=== PATIENT | female | born 1995 | race African-American/Black ===

== ENCOUNTER 2018-10-08 08:15 | Observation (INO) | payer OTHER ==
[~2018-10-08] VITALS: Ht 172.7 cm; Wt 107.5 kg
[2018-10-08] MEDS ORDERED: LACTATED RINGER'S 2,000 ML IV ONE (09:00)
[2018-10-08] MEDS ORDERED: PROMETHAZINE HCL 25 MG/ML 1ML IV PRN (09:00)
[2018-10-08] MEDS ORDERED: D5W/LACTATED RINGERS 1,000 ML IV ONE (09:30)
== END 2018-10-08 11:10 | disposition home or self-care (01) | DRG 833 ==
LOC: LDRP 08:15
PROVIDERS: ADMIT Internal Medicine; ATTEND Internal Medicine
DX: O21.2 Late vomiting of pregnancy (principal); O99.283 Endocrine, nutritional and metabolic diseases complicating pregnancy, third trimester; E86.0 Dehydration; Z3A.33 33 weeks gestation of pregnancy
CPT/HCPCS: 59025; 81002; 96361; 96374; G0378; J2550; 96372

== ENCOUNTER → 2018-10-22 | Outpatient (CLI) | payer OTHER ==
[2018-10-22 09:49] LABS: Basophils # (auto) 0 uL; Basophils % (auto) 0.3 % (0.0-2.0); Eosinophils # (auto) 0 uL; Eosinophils % (auto) 0.6 % (0.0-7.0); Hematocrit 42.1 % (36.0-46.0); Hemoglobin 14.1 g/dL (12.2-16.2); Lymphocytes % (auto) 24.8 % (10.0-50.0); Mean Corpuscular Hemoglobin 29.1 pg (28.0-32.0); Mean Corpuscular Hgb Conc. 33.4 g/dL (32.0-36.0); Mean Corpuscular Volume 87.1 fL (80.0-100.0); Monocytes # (auto) 0.7 uL; Monocytes % (auto) 9.3 % (0.0-12.0); Neutrophils # (auto) 5.2 uL; Nucleated Red Blood Cells % 0.1 %; Platelet Count (auto) 188 10^3/uL (140-450); Red Blood Cells 4.84 10^6/uL (4.0-5.20); Red Cell Distribution Width 14.3 % (11.8-14.3); White Blood Cell 8.1 10^3/uL (4.4-10.8)
[2018-10-23 11:06] LABS: RPR Non Reactive (Non Reactive)
== END | disposition home or self-care (01) ==
LOC: LAB 09:02
PROVIDERS: ATTEND Obstetrics & Gynecology
DX: O23.593 Infection of other part of genital tract in pregnancy, third trimester (principal); Z3A.35 35 weeks gestation of pregnancy
CPT/HCPCS: 36415; 84112; 85025; 86592; 87081

== ENCOUNTER 2018-11-07 10:00 | Observation (INO) | payer OTHER | END 2018-11-07 11:48 | disposition home or self-care (01) | DRG 833 | LOC: LDRP 10:00 | PROVIDERS: ADMIT Obstetrics & Gynecology; ATTEND Obstetrics & Gynecology | DX: O36.5930 Maternal care for other known or suspected poor fetal growth, third trimester, not applicable or unspecified (principal); O26.893 Other specified pregnancy related conditions, third trimester; R51 Headache; Z3A.37 37 weeks gestation of pregnancy; Z87.891 Personal history of nicotine dependence | CPT/HCPCS: 59025; 76818; 81002; G0378 ==

== ENCOUNTER 2018-11-11 11:28 | Observation (INO) | payer OTHER ==
[2018-11-11] MEDS ORDERED: PREN-153 PO (12:31)
[2018-11-11] MEDS ORDERED: CALC667C PO (12:32)
[2018-11-11] MEDS ORDERED: CEPH250C PO (12:33)
== END 2018-11-11 13:15 | disposition home or self-care (01) | DRG 833 ==
LOC: LDRP 11:28
PROVIDERS: ADMIT Obstetrics & Gynecology; ATTEND Obstetrics & Gynecology
DX: O60.03 Preterm labor without delivery, third trimester (principal); Z87.891 Personal history of nicotine dependence; Z3A.37 37 weeks gestation of pregnancy
CPT/HCPCS: 59025; 76818; 81002; G0378

== ENCOUNTER 2018-11-12 18:57 | Observation (INO) | payer OTHER ==
[~2018-11-12 18:57] MED LIST: CALC667C PO; CEPH250C PO; PREN-153 PO
== END 2018-11-12 21:24 | disposition home or self-care (01) | DRG 833 ==
LOC: LDRP 18:57
PROVIDERS: ADMIT Specialist; ATTEND Specialist
DX: O26.893 Other specified pregnancy related conditions, third trimester (principal); Z3A.38 38 weeks gestation of pregnancy
CPT/HCPCS: 59025; 76818; 81002; G0378

== ENCOUNTER 2018-11-18 09:42 | Observation (INO) | payer OTHER ==
[2018-11-18 10:59] LABS: Basophils # (auto) 0 uL; Basophils % (auto) 0.3 % (0.0-2.0); Eosinophils # (auto) 0.1 uL; Eosinophils % (auto) 0.6 % (0.0-7.0); Hematocrit 42.5 % (36.0-46.0); Hemoglobin 14.1 g/dL (12.2-16.2); Lymphocytes # (auto) 2.2 uL; Lymphocytes % (auto) 23.9 % (10.0-50.0); Mean Corpuscular Hemoglobin 29.2 pg (28.0-32.0); Mean Corpuscular Hgb Conc. 33.2 g/dL (32.0-36.0); Monocytes # (auto) 0.8 uL; Monocytes % (auto) 8.4 % (0.0-12.0); Neutrophils # (auto) 6.1 uL; Neutrophils % (auto) 66.8 % (37.0-80.0); Nucleated Red Blood Cells % 0.2 %; Platelet Count (auto) 150 10^3/uL (140-450); Red Blood Cells 4.83 10^6/uL (4.0-5.20); Red Cell Distribution Width 15.2 % (11.8-14.3); White Blood Cell 9.1 10^3/uL (4.4-10.8)
[2018-11-18 11:14] LABS: INR < 0.93 (0.9-1.15)
[2018-11-18 11:25] LABS: Albumin 1.5 g/dL (3.4-5.0); Calcium 8.8 mg/dL (8.5-10.1); Potassium 3.6 mmol/L (3.5-5.1); Uric Acid 5.8 mg/dL (2.6-6.0)
[2018-11-18 11:28] LABS: BUN/Creatinine Ratio 9.1; Bilirubin, Total 0.2 mg/dL (0.2-1.0); Total Protein 7.1 g/dL (6.4-8.2)
[2018-11-18 11:30] LABS: Urine Bacteria FEW /hpf (None Seen); Urine Blood 1+ /uL (Negative); Urine Specific Gravity 1.011 (1.001-1.035); Urine WBC 35 /hpf (0 - 5)
== END 2018-11-18 13:20 | disposition home or self-care (01) | DRG 833 ==
LOC: LDRP 09:42
PROVIDERS: ADMIT Obstetrics & Gynecology; ATTEND Obstetrics & Gynecology
DX: O26.893 Other specified pregnancy related conditions, third trimester (principal); Z3A.38 38 weeks gestation of pregnancy; Z87.891 Personal history of nicotine dependence
CPT/HCPCS: 36415; 59025; 76818; 80053; 81001; 81002; 84550; 85025; 85610; 85730; G0378

== ENCOUNTER 2018-11-20 09:00 | Observation (INO) | payer OTHER ==
[2018-11-20 10:21] LABS: Urine Bacteria FEW /hpf (None Seen); Urine Blood TRACE /uL (Negative); Urine Specific Gravity 1.005 (1.001-1.035); Urine WBC 3 /hpf (0 - 5)
[2018-11-20 10:48] LABS: Protein, Urine 6.1 mg/dL (0.0-11.9)
== END 2018-11-20 11:20 | disposition home or self-care (01) | DRG 833 ==
LOC: LDRP 09:00
PROVIDERS: ADMIT Specialist; ATTEND Specialist
DX: O26.893 Other specified pregnancy related conditions, third trimester (principal); R51 Headache; R11.0 Nausea; Z87.891 Personal history of nicotine dependence; Z3A.39 39 weeks gestation of pregnancy
CPT/HCPCS: 59025; 81001; 81002; 84156; G0378

== ENCOUNTER 2018-11-20 16:05 | Observation (INO) | payer OTHER ==
[2018-11-20 17:23] LABS: Urine Bacteria NONE SEEN /hpf (None Seen); Urine Blood 1+ /uL (Negative); Urine Specific Gravity 1.013 (1.001-1.035); Urine WBC 2 /hpf (0 - 5)
== END 2018-11-20 18:10 | disposition home or self-care (01) | DRG 833 ==
LOC: LDRP 16:05
PROVIDERS: ADMIT Specialist; ATTEND Specialist
DX: O26.893 Other specified pregnancy related conditions, third trimester (principal); R10.9 Unspecified abdominal pain; R51 Headache; R11.0 Nausea; Z3A.39 39 weeks gestation of pregnancy; Z87.891 Personal history of nicotine dependence
CPT/HCPCS: 59025; 81001; 81002; G0378

== ENCOUNTER 2018-11-23 13:07 | Observation (INO) | payer OTHER ==
[~2018-11-23 13:07] MED LIST changes: -CEPH250C PO
== END 2018-11-23 15:50 | disposition home or self-care (01) | DRG 833 ==
LOC: LDRP 13:07
PROVIDERS: ADMIT Specialist; ATTEND Specialist
DX: O26.893 Other specified pregnancy related conditions, third trimester (principal); R11.2 Nausea with vomiting, unspecified; Z87.891 Personal history of nicotine dependence; Z3A.39 39 weeks gestation of pregnancy
CPT/HCPCS: 59025; 76818; 81002; G0378

== ENCOUNTER 2018-11-24 21:36 | Inpatient (IN) | payer OTHER ==
[~2018-11-24] VITALS: Ht 172.7 cm; Wt 111.1 kg
[2018-11-24] MEDS ORDERED: LACT. RINGERS/OXYTOCIN 20UNITS 1,000 ML IV SCH (22:52)
[2018-11-24] MEDS ORDERED: DERMOPLAST 60ML BOTTLE TOP PRN (23:00)
[2018-11-24] MEDS ORDERED: NALBUPHINE HCL 10 MG/1ml INJECTION IV PRN (23:00)
[2018-11-24] MEDS ORDERED: WITCH HAZEL-GLYCERIN PAD TOP PRN (23:00)
[2018-11-24] MEDS ORDERED: PHISODERM TOP SOLN 240ML BTL TOP PRN (23:00)
[2018-11-24] MEDS ORDERED: LIDOCAINE 2%HCL (LOCAL ANESTH.) INJ 20ML MDV ID ONE (23:00)
[2018-11-24] MEDS ORDERED: PENICILLIN G POT 5MIL/D5 50ML 50 ML IV ONE (23:30)
[2018-11-24 23:45] LABS: Basophils # (auto) 0 uL; Basophils % (auto) 0.3 % (0.0-2.0); Eosinophils # (auto) 0.1 uL; Eosinophils % (auto) 0.5 % (0.0-7.0); Hematocrit 43.8 % (36.0-46.0); Hemoglobin 14.7 g/dL (12.2-16.2); Lymphocytes # (auto) 2.2 uL; Lymphocytes % (auto) 20.8 % (10.0-50.0); Mean Corpuscular Hemoglobin 29.3 pg (28.0-32.0); Mean Corpuscular Hgb Conc. 33.5 g/dL (32.0-36.0); Mean Corpuscular Volume 87.7 fL (80.0-100.0); Monocytes # (auto) 0.9 uL; Monocytes % (auto) 8.8 % (0.0-12.0); Neutrophils # (auto) 7.4 uL; Neutrophils % (auto) 69.6 % (37.0-80.0); Nucleated Red Blood Cells % 0.1 %; Platelet Count (auto) 160 10^3/uL (140-450); Red Cell Distribution Width 15.1 % (11.8-14.3); White Blood Cell 10.6 10^3/uL (4.4-10.8)
[2018-11-24 23:50] LABS: Urine Bacteria FEW /hpf (None Seen); Urine Blood 1+ /uL (Negative); Urine Specific Gravity 1.013 (1.001-1.035); Urine WBC 5 /hpf (0 - 5)
[2018-11-25 00:04] LABS: Albumin 3.2 g/dL (3.4-5.0); BUN/Creatinine Ratio 7.9; Calcium 9.1 mg/dL (8.5-10.1); Potassium 4.2 mmol/L (3.5-5.1)
[2018-11-25 00:07] LABS: Bilirubin, Total 0.2 mg/dL (0.2-1.0); Total Protein 7.7 g/dL (6.4-8.2)
[2018-11-25 00:08] LABS: INR < 0.93 (0.9-1.15); Partial Thromboplastin Time 27.9 sec (23.64-32.05)
[2018-11-25 00:13] LABS: Alcohol, Urine < 3.0 mg/dL (0-5); Amphetamine Screen, Urine NEGATIVE (NEGATIVE); Barbiturate Scree,Urine NEGATIVE (NEGATIVE); Benzodiazephine Screen, Urine NEGATIVE (NEGATIVE); Cannabinoid Screen, Urine NEGATIVE (NEGATIVE); Cocaine Screen, Urine NEGATIVE (NEGATIVE); Opiate Scree,Urine NEGATIVE (NEGATIVE); Phencyclidine Screen, Urine NEGATIVE (NEGATIVE)
[2018-11-25] MEDS ORDERED: ePHEDrine SULFATE 50 MG/ML AMP IV ONE ×2 (01:45→03:00)
[2018-11-25] MEDS ORDERED: fentaNYL CITRATE 100 MCG/2 ML VL IV ONE (01:45)
[2018-11-25] MEDS ORDERED: LIDOCAINE HCL 2 %PF INJ 10ML AMP IJ ONE (01:45)
[2018-11-25] MEDS ORDERED: NALOXONE HCL 0.4 MG/ML VIAL IV ONE ×2 (01:45→03:00)
[2018-11-25] MEDS: fentaNYL W ROPIVACAINE 150 ML EPI SCH ×2 (02:53→05:20)
[2018-11-25] MEDS ORDERED: SODIUM CHLORIDE 0.9% 500 ML IV PRN (02:58)
[2018-11-25] MEDS ORDERED: LACTATED RINGER'S 500 ML IV ONE (02:58)
[2018-11-25] MEDS ORDERED: LIDOCAINE 2%HCL (LOCAL ANESTH.) INJ 20ML MDV IJ ONE (03:00)
[2018-11-25] MEDS ORDERED: fentaNYL W ROPIVACAINE 150 ML EPI SCH (03:00)
[2018-11-25] MEDS ORDERED: PENICILLIN G POTASSIUM 2,500,000 UNITS in D5W 5% 50 ML IV SCH (03:30)
[2018-11-25] MEDS: LACTATED RINGER'S 1,000 ML IV SCH ×2 (04:23→04:24)
[2018-11-25] MEDS ORDERED: PENICILLIN G POT 5MILLION UNIT VIAL ONE (04:36)
[2018-11-25] MEDS ORDERED: METHYLERGONOVINE MALEATE 0.2 MG/ML AMP IM ONE ×2 (07:56→08:45)
[2018-11-25] MEDS ORDERED: LACT. RINGERS/OXYTOCIN 20UNITS 500 ML IV ONE (08:39)
--- NOTE | 2018-11-25 10:41 | NUR ---
Ambulation: Patient OOB with standby assistance by RN. Patient ambulated to bathroom with steady gait. Patient able to void without difficulty. Pericare teaching provided with returned demonstration by patient. Clean gown provided and bed linen changed. Patient ambulated back to bed with steady gait and no distress noted.
[2018-11-25 10:42] VITALS: BP 135/80
[2018-11-25 11:00] VITALS: BP 138/72
[2018-11-25] MEDS: ACETAMINOPHEN 325 MG TAB PO PRN ×2 (14:43→20:36)
[2018-11-25 15:15] VITALS: BP 138/63
[2018-11-25] MEDS: IBUPROFEN 600 MG TAB PO PRN (18:34)
[2018-11-25 19:30] VITALS: BP 133/77
--- NOTE | 2018-11-25 20:15 | NUR ---
IV removal IV DC'd with clean sterile technique, catheter fully intact. Pressure dressing applied to site. Patient tolerated well. NOTE:
[2018-11-25 22:45] VITALS: BP 109/53
[2018-11-26 02:48] VITALS: BP 122/60
[2018-11-26 06:45] VITALS: BP 138/72
[2018-11-26] MEDS: IBUPROFEN 600 MG TAB PO PRN (07:10)
--- NOTE | 2018-11-26 08:01 | NUR ---
Discharge: Discharge instructions given as ordered. Pt encouraged to follow up with CABLE FERRY OPERATOR as instructed. All questions and concerns addressed. Patient verbalized understanding. Medication reconciliation completed and copy given to patient. Patient encouraged to prepare to depart unit.
[2018-11-26 11:25] VITALS: BP 123/74
--- NOTE | 2018-11-26 12:50 | NUR ---
Discharge: Patient taken to vehicle via ambulation refusing wheelchair with all personal belongings, accompanied by staff and family member. No distress noted at time of departure, no adverse changes in status since initial assessment.
[2018-11-27 05:07] LABS: RPR Non Reactive (Non Reactive)
== END 2018-11-26 12:50 | disposition home or self-care (01) | DRG 807 ==
LOC: LDRP 21:36 → OBSVTOIN 21:36 → LDRP 11-25 05:57
PROVIDERS: ADMIT Specialist; ATTEND Specialist
PROC: 10D07Z6 Extraction of Products of Conception, Vacuum, Via Natural or Artificial Opening (ICD-10-PCS; principal; 2018-11-25)
PROC: 0KQM0ZZ Repair Perineum Muscle, Open Approach (ICD-10-PCS; 2018-11-25)
PROC: 3E0R3BZ Introduction of Anesthetic Agent into Spinal Canal, Percutaneous Approach (ICD-10-PCS; 2018-11-25)
PROC: 00HU33Z Insertion of Infusion Device into Spinal Canal, Percutaneous Approach (ICD-10-PCS; 2018-11-25)
PROC: 0W8NXZZ Division of Female Perineum, External Approach (ICD-10-PCS; 2018-11-25)
DX: O99.824 Streptococcus B carrier state complicating childbirth (principal); Z37.0 Single live birth; O77.0 Labor and delivery complicated by meconium in amniotic fluid; O70.1 Second degree perineal laceration during delivery; Z3A.39 39 weeks gestation of pregnancy; Z82.49 Family history of ischemic heart disease and other diseases of the circulatory system; Z83.3 Family history of diabetes mellitus
CPT/HCPCS: 36415; 59025; 59409; 62282; 80053; 80307; 81001; 81002; 84112; 85025; 85610; 85730; 86592; 86850; 86900; 86901; 94762; 96372; G0378; J2540; J2590; J3010; J7060

== ENCOUNTER 2018-11-28 16:21 | Inpatient (IN) | payer OTHER ==
[~2018-11-28] VITALS: Ht 175.3 cm; Wt 107.9 kg
[2018-11-28] MEDS ORDERED: SODIUM CHLORIDE 0.9% 1,000 ML IV ONE ×2 (17:15→19:30)
[2018-11-28] MEDS ORDERED: ACETAMINOPHEN 650 mg PER 20 mL UD PO ONE (17:15)
[2018-11-28 17:36] LABS: Basophils # (auto) 0 uL; Basophils % (auto) 0.2 % (0.0-2.0); Eosinophils # (auto) 0.1 uL; Eosinophils % (auto) 1.3 % (0.0-7.0); Hematocrit 39.3 % (36.0-46.0); Hemoglobin 13.1 g/dL (12.2-16.2); Lymphocytes # (auto) 0.3 uL; Lymphocytes % (auto) 6.2 % (10.0-50.0); Mean Corpuscular Hemoglobin 29.5 pg (28.0-32.0); Mean Corpuscular Hgb Conc. 33.3 g/dL (32.0-36.0); Mean Corpuscular Volume 88.4 fL (80.0-100.0); Monocytes # (auto) 0 uL; Monocytes % (auto) 0.6 % (0.0-12.0); Neutrophils # (auto) 4.4 uL; Neutrophils % (auto) 91.7 % (37.0-80.0); Nucleated Red Blood Cells % 0.1 %; Platelet Count (auto) 140 10^3/uL (140-450); Red Blood Cells 4.44 10^6/uL (4.0-5.20); Red Cell Distribution Width 15.2 % (11.8-14.3); White Blood Cell 4.8 10^3/uL (4.4-10.8)
[2018-11-28 17:53] LABS: Albumin 2.7 g/dL (3.4-5.0); Anion Gap 11 (5-15); BUN/Creatinine Ratio 9.4; Blood Urea Nitrogen 9 mg/dL (7-18); Calcium 8.5 mg/dL (8.5-10.1); Carbon Dioxide 24 mmol/L (21-32); Chloride 106 mmol/L (98-107); GFR African American 92 mL/min; GFR Non-African American 76 mL/min; Glucose 82 mg/dL (74-106); Potassium 3.4 mmol/L (3.5-5.1); Sodium 141 mmol/L (136-145)
[2018-11-28 17:58] LABS: Alanine Aminotransferase 41 U/L (13-56); Alkaline Phosphatase 124 U/L (45-117); Aspartate Aminotransferase 52 U/L (15-37); Bilirubin, Total 0.4 mg/dL (0.2-1.0); Total Protein 6.7 g/dL (6.4-8.2)
[2018-11-28 18:43] LABS: Lactic Acid w/Reflex 2.3 mmol/L (0.4-2.0)
[2018-11-28 19:38] LABS: Urine Bacteria FEW /hpf (None Seen); Urine Blood 2+ /uL (Negative); Urine Specific Gravity 1.007 (1.001-1.035); Urine WBC 72 /hpf (0 - 5)
[2018-11-28] MEDS ORDERED: cefTRIAXone 1GM/50ML D5W 50 ML IV ONE (20:00)
[2018-11-28] MEDS ORDERED: SODIUM CHLORIDE 0.9% 500 ML IV ONE (22:00)
[2018-11-28] MEDS ORDERED: TEMAZEPAM 15 MG CAP PO PRN (22:00)
[2018-11-28] MEDS: FAMOTIDINE 20 MG TAB PO SCH (22:10)
[2018-11-28] MEDS: HYDROcodone-ACET 5/325MG TAB PO PRN (22:10)
--- NOTE | 2018-11-28 22:25 | NUR ---
[facility] admit from [facility] admitted to [facility]. Patient oriented to LAURA ROLLINS RN primary RN, unit, room, bed, and unit policies regarding patient care and visiting hours. Patient weighed by bedscale and encouraged to call if they need something. All questions and concerns addressed, patient verbalized understanding.
[2018-11-28 22:36] VITALS: BP 123/74
[2018-11-28 22:40] VITALS: BP 123/74
[2018-11-28] MEDS: SODIUM CHLORIDE 0.9% 1,000 ML IV SCH (23:10)
[2018-11-29] MEDS: HYDROcodone-ACET 5/325MG TAB PO PRN ×2 (04:09→16:09)
[2018-11-29 04:51] VITALS: BP 128/70
--- NOTE | 2018-11-29 05:54 | NUR ---
Blood culture Positive for Gram negative rods. Will page hospitalist.
--- NOTE | 2018-11-29 05:59 | NUR ---
Hospitalist Called/paged BAT BOY/GIRL Guy Christensen called re:positive blood culture of gram negative rods. Waiting for call back. Continue care.
--- NOTE | 2018-11-29 06:04 | NUR ---
Hospitalist returned call ACTIVE DIRECTORY SPECIALIST Guy Christensen returned call, updated on patient status and reason for call. No new orders at this time. Continue care.
[2018-11-29] MEDS ORDERED: VANCOMYCIN PER PHARMACY 0 MG IV SCH (06:15)
[2018-11-29] MEDS ORDERED: VANCOMYCIN 1GM/250ML 250 ML IV ONE (07:30)
--- NOTE | 2018-11-29 07:31 | NUR ---
Endorsed care to day shift RN.
[2018-11-29 08:00] VITALS: BP_SYST 112; BP_SYST 126; BP_DIAS 70; BP_DIAS 73
[2018-11-29] MEDS ORDERED: VANCOMYCIN 1GM/250ML 250 ML IV SCH (08:00)
[2018-11-29 08:18] LABS: Basophils # (auto) 0 uL; Basophils % (auto) 0.1 % (0.0-2.0); Eosinophils # (auto) 0 uL; Eosinophils % (auto) 0.3 % (0.0-7.0); Hematocrit 36.1 % (36.0-46.0); Lymphocytes # (auto) 0.5 uL; Lymphocytes % (auto) 5.3 % (10.0-50.0); Mean Corpuscular Hemoglobin 29.6 pg (28.0-32.0); Mean Corpuscular Hgb Conc. 33.2 g/dL (32.0-36.0); Mean Corpuscular Volume 89.1 fL (80.0-100.0); Monocytes # (auto) 0.4 uL; Monocytes % (auto) 4.4 % (0.0-12.0); Neutrophils # (auto) 8.4 uL; Neutrophils % (auto) 89.9 % (37.0-80.0); Platelet Count (auto) 139 10^3/uL (140-450); Red Blood Cells 4.05 10^6/uL (4.0-5.20); Red Cell Distribution Width 15.5 % (11.8-14.3); White Blood Cell 9.3 10^3/uL (4.4-10.8)
[2018-11-29 08:32] LABS: BUN/Creatinine Ratio 9.9; Calcium 7.7 mg/dL (8.5-10.1); Potassium 3.5 mmol/L (3.5-5.1)
[2018-11-29] MEDS ORDERED: cefTRIAXone 1GM/50ML D5W 50 ML IV SCH (09:00)
[2018-11-29] MEDS ORDERED: MEROPENEM IV SCH (09:30)
[2018-11-29] MEDS: FAMOTIDINE 20 MG TAB PO SCH ×2 (10:00→21:54)
[2018-11-29] MEDS: ACETAMINOPHEN 325 MG TAB PO PRN ×2 (10:00→21:54)
--- NOTE | 2018-11-29 10:00 | NUR ---
Increased temp temp is 100.7 degrees F. Cooling measures started. Medicated with Tylenol as ordered. Dr. Carrera notified. New orders received to change abx, upgrade to telemetry, gallbladder US, notify MANAGER COUNCIL of above. operating room rn aware. Telemetry order sent. Awaiting tele monitor at this time.
[2018-11-29] MEDS: SODIUM CHLORIDE 0.9% 1,000 ML IV SCH ×2 (10:02→19:27)
--- NOTE | 2018-11-29 10:33 | NUR ---
DRIER OPERATOR HEAD MD Fontaine at bedside, aware of patient's status including increased temp, labs, micro results. MD Fontaine instructed patient to not breastfeed and if needed she can pump breast milk and throw it away due to abx administration, patient verbalized understanding and denies need for pumping at this time. Will cont to monitor
--- NOTE | 2018-11-29 11:00 | NUR ---
Increased temp temperature is 101.6, MD Carrera notified. Per MD medicate with Meropenem now and cont to monitor. This rn notified pharmacy regarding need for med an hour ago and this rn notified Pharmacy now as well and awaiting medication to be sent at this time. Will cont to monitor
[2018-11-29] MEDS: SODIUM CHL 0.9% IV SCH ×2 (11:17→18:40)
[2018-11-29] MEDS: MEROPENEM IV SCH ×2 (11:17→18:40)
--- NOTE | 2018-11-29 11:53 | NUR ---
Hospitalist at bedside MD Carrera at bedside aware of patient's status including labs, vs including increased HR. discussed POC with patient and pt's mother at bedside. Spoke to [employer] tech and made aware of order for gallbladder US for tomorrow morning at 0600 instead of today, pt will be kept NPO as ordered after MN tonight. Per [place], US will be done around 0730. Patient verbalized understanding. Will cont care
[2018-11-29 12:39] VITALS: BP 116/70
--- NOTE | 2018-11-29 12:56 | NUR ---
Regarding temp temp is 99.0. Patient in no distress or sob. Will cont to monitor
--- NOTE | 2018-11-29 16:09 | NUR ---
Increased temp pt temp is 101.8 oral. Cooling measures started with ice packs under neck and armpits, room cooled blankets removed. Medicated for pain with norco as ordered and Dr. Carrera notified and states cont Jadwin for pain and temp control. Will cont to monitor
--- NOTE | 2018-11-29 16:47 | NUR ---
Hospitalist at bedside MD Carrera at bedside. Aware of patient's status including c/o headache and sore neck. MD Carrera called and spoke to Anesthesiologist Dr. Way regarding possible "epidural headache" and per Dr. Way "very unlikely at this time. Per MD Carrera, report any symptoms of nucal rigidity, n/v to Hospitalist. No new orders received at this time. Per Hospitalist tachycardia due to infection and fever defense mechanism, cont current treatment. Will cont care
--- NOTE | 2018-11-29 19:10 | NUR ---
Patient care endorsed endorsed care to Robert rn. Patient sitting up in bed eating dinner. No acute distress or sob. No chills, no sob noted. Call light within reach. Fiance at bedside.
[2018-11-29 22:00] VITALS: BP 108/62
[2018-11-30] MEDS: MEROPENEM IV SCH ×3 (03:32→18:53)
[2018-11-30] MEDS: SODIUM CHL 0.9% IV SCH ×3 (03:32→18:53)
[2018-11-30 05:00] VITALS: BP 128/75
[2018-11-30 06:55] LABS: Basophils # (auto) 0 uL; Basophils % (auto) 0.2 % (0.0-2.0); Eosinophils # (auto) 0 uL; Eosinophils % (auto) 0.6 % (0.0-7.0); Hematocrit 40.1 % (36.0-46.0); Hemoglobin 13.3 g/dL (12.2-16.2); Lymphocytes # (auto) 0.8 uL; Lymphocytes % (auto) 12.3 % (10.0-50.0); Mean Corpuscular Hemoglobin 29.5 pg (28.0-32.0); Mean Corpuscular Hgb Conc. 33.2 g/dL (32.0-36.0); Monocytes # (auto) 0.5 uL; Monocytes % (auto) 7.8 % (0.0-12.0); Neutrophils # (auto) 5.1 uL; Neutrophils % (auto) 79.1 % (37.0-80.0); Platelet Count (auto) 136 10^3/uL (140-450); Red Cell Distribution Width 15.5 % (11.8-14.3); White Blood Cell 6.5 10^3/uL (4.4-10.8)
[2018-11-30 07:15] LABS: Potassium 3.5 mmol/L (3.5-5.1)
[2018-11-30 07:21] LABS: BUN/Creatinine Ratio 10.7; Calcium 8.3 mg/dL (8.5-10.1)
[2018-11-30 09:00] VITALS: BP 142/90
[2018-11-30] MEDS: FAMOTIDINE 20 MG TAB PO SCH ×2 (10:00→22:01)
--- NOTE | 2018-11-30 10:55 | NUR ---
Hospitalist at bedside MD Carrera at bedside, aware of patient's status, labs, VS including increased HR. New orders received to dc NS. Will cont care
[2018-11-30] MEDS: SODIUM CHLORIDE 0.9% 1,000 ML IV SCH (10:59)
[2018-11-30 13:00] VITALS: BP 139/85
[2018-11-30 17:00] VITALS: BP 162/98
--- NOTE | 2018-11-30 19:26 | NUR ---
Patient care endorsed endorsed care to Milagros saenz. Patient laying in bed in no acute distress or sob noted. Patient denies pain but states "sore neck" and requesting warm pack. Warm pack provided. Call light within reach
--- NOTE | 2018-11-30 19:30 | NUR ---
OPENING SHIFT NOTE Assumed care of patient. Patient is A&O x4. On RA with no s/s of SOB or distress. Pt c/o "sore neck"; currently applying heat packs. Patient is able to ambulate independently without the use of assistive devices. No breast engorgement noted. Fundus is midline and below the level of the umbilicus. Scant lochia rubra noted. POC discussed with patient who verbalizes understanding. Patient encouraged to call for assistance when needed. Will continue to monitor PRN.
[2018-11-30 21:42] VITALS: BP 143/70
--- NOTE | 2018-11-30 22:00 | NUR ---
Heat packs provided per patient request for soreness in neck.
[2018-12-01] MEDS: MEROPENEM IV SCH ×2 (03:40→11:26)
[2018-12-01] MEDS: SODIUM CHL 0.9% IV SCH ×2 (03:40→11:26)
[2018-12-01 05:00] VITALS: BP 130/77
[2018-12-01 09:00] VITALS: BP 129/84
--- NOTE | 2018-12-01 10:35 | NUR ---
BREAST PUMP RN [facility] came in to educate regarding the breast pump that was brought in this morning. The patient needs to pump at least every 2 hours to help stimulate milk production. Any milk that is produced can be stored in a [facility]. Will continue to monitor.
[2018-12-01] MEDS: FAMOTIDINE 20 MG TAB PO SCH ×2 (10:41→21:49)
[2018-12-01 13:00] VITALS: BP 133/89
[2018-12-01 17:00] VITALS: BP 134/89
--- NOTE | 2018-12-01 17:10 | NUR ---
assessment Per consult no primary MD. Evelyn Solis seen patient for PCP. Addendum: 12/01/18 at 1711 by Evelyn Crespo Amended: Links added.
[2018-12-01] MEDS ORDERED: MEROPENEM 1 GM in SODIUM CHL 0.9% 100 ML IV SCH (18:00)
--- NOTE | 2018-12-01 19:40 | NUR ---
Opening Shift Note Assumed care of patient, awake and alert oriented x4. No S/S of distress/SOB or pain noted. Bed is in lowest locked position with bed rails up x2 and call light is within reach of the patient. Instructed on POC and to call for assist PRN.
[2018-12-01] MEDS ORDERED: CEFTRIAXONE SODIUM 2 GM in D5W 5% 50 ML IV ONE (20:00)
[2018-12-01 21:48] VITALS: BP 129/72
[2018-12-02 04:44] VITALS: BP 130/70
[2018-12-02 09:00] VITALS: BP 125/84
[2018-12-02] MEDS: FAMOTIDINE 20 MG TAB PO SCH ×2 (09:43→21:36)
[2018-12-02] MEDS: CEFTRIAXONE SODIUM 2 GM in D5W 5% 50 ML IV SCH (09:50)
--- NOTE | 2018-12-02 11:41 | NUR ---
Nutrition Assessment Notes please see attached link for complete assessment Est. Needs ABW 88 [id number] kcal (20-23 kcal/kgBW), 88-96 gms pro (1.0-1.1 gms/kgBW). Will continue to monitor pertinent labs and reassess nutrient need prn. Addendum: 12/02/18 at [address] Amended: Links added.
[2018-12-02 13:00] VITALS: BP 125/81
[2018-12-02 17:00] VITALS: BP 127/84
[2018-12-02 22:26] VITALS: BP 135/77
[2018-12-03 05:00] VITALS: BP 107/69
--- NOTE | 2018-12-03 07:45 | NUR ---
Opening Shift Note Assumed care of patient, awake and alert. Patient using breast pump. No S/S of distress/SOB or pain. Instructed on POC and to call for assist PRN, will continue to monitor for changes Q1hr and PRN.
[2018-12-03 08:57] VITALS: BP 139/79
[2018-12-03] MEDS: FAMOTIDINE 20 MG TAB PO SCH ×2 (10:02→22:22)
[2018-12-03] MEDS: CEFTRIAXONE SODIUM 2 GM in D5W 5% 50 ML IV SCH (10:02)
[2018-12-03 11:59] VITALS: BP 111/82
[2018-12-03 16:58] VITALS: BP 121/82
[2018-12-03] MEDS: ACETAMINOPHEN 325 MG TAB PO PRN (18:29)
--- NOTE | 2018-12-03 19:30 | NUR ---
SHIFT CHANGE Rounds completed, patient resting in bed with guest bedside. No complaints of pain or s/s of distress. Will continue care.
[2018-12-03 22:33] VITALS: BP 121/70
--- NOTE | 2018-12-04 01:07 | NUR ---
ROUNDS Patient rounds completed, patient resting in bed with eyes closed, respirations even and unlabored.
--- NOTE | 2018-12-04 04:20 | NUR ---
Opening Shift Note Assumed care of patient from propellant charge loader, awake and alert. No S/S of distress/SOB or pain. Instructed on POC and to call for assist PRN, will continue to monitor for changes Q1hr and PRN.
[2018-12-04 05:18] VITALS: BP 124/71
[2018-12-04 08:48] VITALS: BP 129/73
[2018-12-04] MEDS: FAMOTIDINE 20 MG TAB PO SCH (09:38)
[2018-12-04] MEDS: CEFTRIAXONE SODIUM 2 GM in D5W 5% 50 ML IV SCH (09:39)
--- NOTE | 2018-12-04 11:02 | NUR ---
MD LEVINE AT BEDSIDE ROUNDED ON PT PUT IN DISCHARGE ORDER TO HOME WITH PO ATB
--- NOTE | 2018-12-04 13:31 | NUR ---
PT DISCHARGED TO HOME AMBULATORY WALKED OUT TO [facility] TAKEN HOME BY
== END 2018-12-04 13:30 | disposition home or self-care (01) | DRG 776 ==
LOC: ER 16:29 → OVERFLOW 16:30 → WEST WING 22:26 → TELE-WESTW 11-29 09:42
PROVIDERS: ADMIT Nurse Practitioner; ATTEND Family Medicine
DX: O85 Puerperal sepsis (principal); O86.21 Infection of kidney following delivery; O99.13 Other diseases of the blood and blood-forming organs and certain disorders involving the immune mechanism complicating the puerperium; Z77.22 Contact with and (suspected) exposure to environmental tobacco smoke (acute) (chronic); B96.20 Unspecified Escherichia coli [E. coli] as the cause of diseases classified elsewhere; O99.285 Endocrine, nutritional and metabolic diseases complicating the puerperium; E86.0 Dehydration; D69.6 Thrombocytopenia, unspecified; Z83.3 Family history of diabetes mellitus; Z82.49 Family history of ischemic heart disease and other diseases of the circulatory system; Z82.3 Family history of stroke
CPT/HCPCS: 36415; 76705; 76856; 80048; 80053; 81001; 83605; 84439; 84443; 84484; 84702; 85025; 87040; 87077; 87081; 87086; 87088; 87186; 93005; 94761; 96361; 96365; 96379; G0378; J0696; J7060

== ENCOUNTER → 2018-12-11 | Outpatient (CLI) | payer OTHER ==
[2018-12-11 16:15] LABS: Basophils # (auto) 0.1 uL; Basophils % (auto) 0.9 % (0.0-2.0); Eosinophils # (auto) 0.1 uL; Eosinophils % (auto) 1.4 % (0.0-7.0); Hematocrit 42.4 % (36.0-46.0); Hemoglobin 13.9 g/dL (12.2-16.2); Lymphocytes # (auto) 3.4 uL; Lymphocytes % (auto) 35.6 % (10.0-50.0); Mean Corpuscular Hemoglobin 28.9 pg (28.0-32.0); Mean Corpuscular Hgb Conc. 32.8 g/dL (32.0-36.0); Mean Corpuscular Volume 88.2 fL (80.0-100.0); Monocytes # (auto) 0.8 uL; Monocytes % (auto) 7.9 % (0.0-12.0); Neutrophils # (auto) 5.1 uL; Neutrophils % (auto) 54.2 % (37.0-80.0); Platelet Count (auto) 354 10^3/uL (140-450); Red Cell Distribution Width 14.6 % (11.8-14.3); White Blood Cell 9.5 10^3/uL (4.4-10.8)
== END | disposition home or self-care (01) ==
LOC: LAB 16:04
PROVIDERS: ATTEND Internal Medicine Nephrology
DX: N93.9 Abnormal uterine and vaginal bleeding, unspecified (principal)
CPT/HCPCS: 36415; 85025

== ENCOUNTER → 2018-12-26 | Outpatient (CLI) | payer OTHER ==
[2018-12-26 12:52] LABS: Potassium 3.6 mmol/L (3.5-5.1)
[2018-12-26 12:54] LABS: Urine Bacteria NONE SEEN /hpf (None Seen); Urine Blood 1+ /uL (Negative); Urine Specific Gravity 1.014 (1.001-1.035); Urine WBC 2 /hpf (0 - 5)
[2018-12-26 12:58] LABS: BUN/Creatinine Ratio 5.6; Calcium 9.3 mg/dL (8.5-10.1)
== END | disposition home or self-care (01) ==
LOC: LAB 11:53
PROVIDERS: ATTEND Internal Medicine Nephrology
DX: N39.0 Urinary tract infection, site not specified (principal); Z86.19 Personal history of other infectious and parasitic diseases
CPT/HCPCS: 36415; 80048; 80061; 81001; 84443; 87040; 87086